=== PATIENT | male | born 1985 | race Caucasian/White ===

== ENCOUNTER 2016-09-30 14:17 | Emergency (ER) | payer OTHER ==
[2016-09-30 14:30] VITALS: RESP 18; TEMP 98; O2SAT 97
--- NOTE | 2016-09-30 15:14 | UCPHY ---
H & P Time Seen by Provider: 09/30/16 15:11 Patient Type: New HPI/ROS: 31-year-old male presents complaining of approximately 1 week that he has noticed a swollen lymph node on his left anterior neck. Has noted some mild sore throat, malaise, fevers chills occasional headache. Review of systems As per HPI General positive fever positive chills positive fatigue HEENT no eye pain no eye discharge. No eye redness, positive sore throat Respiratory no cough, no shortness of breath Cardiac no chest pain, no peripheral edema GI no abdominal pain, no diarrhea, no constipation, no nausea, no vomiting no flank pain, no hematuria, no dysuria Musculoskeletal no myalgias, no joint pain Heme no easy bruising, no easy bleeding Endo no polyuria, no polydipsia Skin no rashes, no pruritus Neuro no syncope, no dizziness, no headaches Psych is no suicidal ideation, no homicidal ideation Past Medical/Surgical History: None Social History: Drinks alcohol socially Denies drug use Smoking Status: Never smoked Physical Exam: Alert and oriented in no acute distress nontoxic appearance, afebrile Atraumatic normocephalic Extraocular muscles intact, anicteric Neck-supple, positive anterior cervical lymphadenopathy mildly tender to palpation Oropharynx positive enlarged tonsils, erythematous, no uvular deviation, no purulent exudate, tolerating own secretions, no trismus Lungs clear to auscultation bilaterally Heart regular rate and rhythm Abdomen normoactive bowel sounds soft nontender No splenomegaly Extremities no cyanosis clubbing edema Skin no rash Constitutional: Initial Vital Signs Temperature (C) 36.6 C 09/30/16 14:27 Heart Rate 78 09/30/16 14:27 Respiratory Rate 18 09/30/16 14:27 Blood Pressure 123/97 H 09/30/16 14:27 O2 Sat (%) 97 09/30/16 14:27 O2 Delivery Mode Room Air Allergies/Adverse Reactions: contrast Allergy (Uncoded 09/30/16 14:27) Home Medications: Medication Instructions Recorded NK [No Known Home Meds] 09/30/16 Medical Decision Making ED Course/Re-evaluation: Patient seen and evaluated for swollen left anterior cervical lymph node of approximately 1 week duration associated with malaise, fevers chills mild sore throat. Labs sent Strep negative Oxford positive CBC with a normal white count normal H&H with lymphocytosis Impression Left anterior cervical lymph node/lymphadenitis likely secondary to mononucleosis Plan Supportive care Follow-up primary care physician Given explicit education on protection of spleen, no sports for the next 3-4 weeks. - Data Points Laboratory Results: Laboratory Results 09/30/16 15:12 09/30/16 15:12 09/30/16 09/30/16 09/30/16 Unknown 15:12 15:11 WBC 9.97 H 10^3/uL (3.80-9.50) RBC 5.38 10^6/uL (4.40-6.38) Hgb 16.9 g/dL (13.7-17.5) Hct 48.2 % (40.0-51.0) MCV 89.6 fL (81.5-99.8) MCH 31.4 pg (27.9-34.1) MCHC 35.1 g/dL (32.4-36.7) RDW 12.0 % (11.5-15.2) Plt Count 273 10^3/uL (150-400) MPV 9.8 fL (8.7-11.7) Neut % (Auto) Not Reported Lymph % (Auto) Not Reported Oxford % (Auto) Not Reported Eos % (Auto) Not Reported Baso % (Auto) Not Reported Nucleat RBC Rel Count 0.0 % (0.0-0.2) Absolute Neuts (auto) Not Reported Absolute Lymphs (auto) Not Reported Absolute Monos (auto) Not Reported Absolute Eos (auto) Not Reported Absolute Basos (auto) Not Reported Absolute Nucleated RBC 0.00 10^3/uL (0-0.01) Immature Gran % Not Reported Seg Neutrophils % 41 % Band Neutrophils % 3 % Lymphocytes % 47 % Monocytes % 7 % Basophils % 1 % Metamyelocytes % 1 % Immature Gran # Not Reported Absolute Seg Neuts 4.1 K/MM3 (1.8-7) Absolute Band Neuts 0.3 K/MM3 (0-0.7) Absolute Lymphocytes 4.7 K/mm3 (1.0-4.8) Absolute Monocytes 0.7 K/mm3 (0-0.8) Absolute Basophils 0.1 K/mm3 (0-0.2) Absolute Metamyelocyte 0.1 H K/mm3 (0-0) RBC/WBC/PLT Morphology NORMAL (NORMAL) Atypical Lymphocytes 1+ H Platelet Estimate ADEQUATE (ADEQ) Sodium 138 mEq/L (134-144) Potassium 4.5 mEq/L (3.5-5.2) Chloride 101 mEq/L (97-110) Carbon Dioxide 25 mEq/l (22-31) Anion Gap 12 mEq/L (8-16) BUN 13 mg/dL (7-23) Creatinine 0.9 mg/dL (0.7-1.3) Estimated GFR > 60 Glucose 100 mg/dL (70-100) Calcium 9.4 mg/dL (8.5-10.4) Total Bilirubin 0.8 mg/dL (0.1-1.4) AST 51 IU/L (17-59) ALT 75 H IU/L (21-72) Alkaline Phosphatase 67 IU/L (38-126) Total Protein 7.3 g/dL (6.3-8.2) Albumin 4.0 g/dL (3.5-5.0) Monoscreen POSITIVE H (NEGATIVE) Group A Strep Screen NEGATIVE (NEGATIVE) Group A Strep DNA Pending Departure - Departure Disposition: Home, Routine, Self-Care Clinical Impression: Mononucleosis Condition: Good Instructions: Mononucleosis (ED) Additional Instructions: Follow-up with your primary care physician in 3-7 days. Referrals: Kayla Barillas PA [Primary Care Provider] - As per Instructions - PQRS PQRS Measurement: Not applicable
[2016-09-30 15:21] LABS: ADD MORPH? NO; FRAGMENT RBC FLAG 0 (0-99); HEMATOCRIT 48.2 % (40.0-51.0); HEMOGLOBIN 16.9 g/dL (13.7-17.5); LEFT SHIFT FLG 0 (0-99); LIPEMIA HEMOLYSIS FLAG 90 (0-99); MEAN CELL HEMOGLOBIN 31.4 pg (27.9-34.1); MEAN CELL HEMOGLOBIN CONCENTR. 35.1 g/dL (32.4-36.7); MEAN CELL VOLUME 89.6 fL (81.5-99.8); MEAN PLATELET VOLUME 9.8 fL (8.7-11.7); PLATELET CLUMPS FLAG 0 (0-99); PLATELET COUNT 273 10^3/uL (150-400); RED BLOOD CELL COUNT 5.38 10^6/uL (4.40-6.38)
[2016-09-30 15:24] LABS: ADD DIFF? YES; ADD SCAN? NO; ATYPICAL LYMPHOCYTE FLAG 200 (0-99)
[2016-09-30 15:58] LABS: ALANINE AMINOTRANSFERASE 75 IU/L (21-72); ALKALINE PHOSPHATASE 67 IU/L (38-126); ANION GAP 12 mEq/L (8-16); ASPARTATE AMINOTRANSFERASE 51 IU/L (17-59); BILIRUBIN,TOTAL 0.8 mg/dL (0.1-1.4); CALCIUM 9.4 mg/dL (8.5-10.4); CARBON DIOXIDE 25 mEq/l (22-31); CHLORIDE 101 mEq/L (97-110); CREATININE 0.9 mg/dL (0.7-1.3); GLOMERULAR FILTRATION RATE > 60; GLUCOSE 100 mg/dL (70-100); POTASSIUM 4.5 mEq/L (3.5-5.2); SODIUM 138 mEq/L (134-144); TOTAL PROTEIN 7.3 g/dL (6.3-8.2)
[2016-09-30 16:12] VITALS: BP 124/62; PULSE 75
[2016-09-30 16:30] LABS: PLATELET ESTIMATE ADEQUATE (ADEQ)
== END 2016-09-30 16:11 | disposition home or self-care (01) ==
LOC: CED 14:17
DX: B27.90 Infectious mononucleosis, unspecified without complication (principal)
CPT/HCPCS: 80053-PO; 85025-PO; 86308-PO; 87880-PO; G0463-PO

== ENCOUNTER 2016-12-01 10:58 | Emergency (ER) | payer OTHER ==
[2016-12-01 11:19] VITALS: BP 125/78; PULSE 90; RESP 18; TEMP 98.6; O2SAT 96
--- NOTE | 2016-12-01 11:35 | UCPHY ---
H & P Time Seen by Provider: 12/01/16 11:10 Patient Type: New HPI/ROS: CHIEF COMPLAINT: Exposure to strep throat HPI: The patient is a 31-year-old male with a history of psoriasis. His girlfriend apparently was diagnosed yesterday with strep throat. The patient himself has no symptoms, but his girlfriend told him to come in to get treated for strep throat. The patient describes minor exacerbation of his chronic psoriasis as only other symptom. No fever, no sore throat, no chills. REVIEW OF SYSTEMS: Aside from elements discussed in the HPI, a comprehensive 10-point review of systems was reviewed and is negative. PMH: Psoriasis. SOCIAL HISTORY: Lives with girlfriend. FAMILY HISTORY: Reviewed, noncontributory PHYSICAL EXAM: General:Patient is alert, in no acute distress. ENT:Eyes are normal to inspection. ENT inspection normal. No erythema or exudate on tonsils. Neck: Normal inspection. Full range of motion. Smoking Status: Current some day smoker Constitutional: Initial Vital Signs Temperature (C) 37.0 C 12/01/16 11:17 Heart Rate 90 12/01/16 11:17 Respiratory Rate 18 12/01/16 11:17 Blood Pressure 125/78 H 12/01/16 11:17 O2 Sat (%) 96 12/01/16 11:17 O2 Delivery Mode Room Air Allergies/Adverse Reactions: contrast Allergy (Uncoded 09/30/16 14:27) Home Medications: Medication Instructions Recorded Amoxicillin Trihydrate 500 mg PO TID 7 Days 12/01/16 [Amoxicillin] MDM/Departure - MDM ED Course/Re-evaluation: This patient presents essentially with possible exposure to strep throat in the absence of symptoms. He requests antibiotics. I explained that this is likely unnecessary but will write him a course of amoxicillin. - Depart Disposition: Home, Routine, Self-Care Clinical Impression: Exposure to strep throat Condition: Good Instructions: Strep Throat (ED) Prescriptions: Amoxicillin Trihydrate [Amoxicillin] 500 mg PO TID 7 Days Referrals: NONE *PRIMARY CARE P,. [Primary Care Provider] - As per Instructions - PQRS PQRS Measurement: 134: Depression screening and followup, PRIME MD-PHQ2 (12 years and older) Over the last 2 weeks, how often have you been bothered by any of the following problems? 1. Feeling down, depressed, or hopeless? 2. Little interest or pleasure in doing things? Patient answered no to both 1 and 2 130: Documentation of medications. Reviewed all patient medications, doses, route and frequency. 226: Do you smoke? No. 51: 18 years old and older with diagnosis of COPD, spirometry performance. Spirometry not performed; equipment not available. Patient has no history of COPD 52: 18 years old and older with COPD and symptoms of COPD or FEV1<60% predicted prescribed a B Agonist. Spirometry not performed; equipment not available.
== END 2016-12-01 11:51 | disposition home or self-care (01) ==
LOC: CED 10:58
DX: Z20.818 Contact with and (suspected) exposure to other bacterial communicable diseases (principal); F17.200 Nicotine dependence, unspecified, uncomplicated; L40.9 Psoriasis, unspecified
CPT/HCPCS: 87880-PO; 99203-PO; G0463-PO

== ENCOUNTER 2018-05-12 | Emergency (ER) | payer OTHER | END 2018-05-12 15:50 | disposition home or self-care (01) ==